=== PATIENT | female | born 1995 | race Hispanic/Latino ===

== ENCOUNTER 2023-09-07 15:01 | Emergency (ER) | payer SELFPAY ==
[~2023-09-07] VITALS: Ht 12.7 cm; Wt 47.6 kg
[2023-09-07] MEDS ORDERED: CEFTRIAXONE 1 GM VIAL IV SCH (15:45)
[2023-09-07] MEDS ORDERED: ACETAMINOPHEN 325 MG TAB PO ONE (15:45)
[2023-09-07 16:29] LABS: BASOPHILS % 0.1 % (0.0-1.0); HEMATOCRIT 34.5 % (34.2-44.1); HEMOGLOBIN 11.7 g/dL (12.0-16.0); LYMPHOCYTES # (AUTO) 0.5 (1.0-3.2); LYMPHOCYTES % 3.4 % (18.0-39.1); MEAN CORPUSCULAR HEMOGLOBIN 29.2 pg (28-32); MEAN CORPUSCULAR HGB CONC 33.9 g/dL (31-35); MONOCYTES # (AUTO) 0.9 (0.2-0.8); MONOCYTES % 6.1 % (4.4-11.3); NEUTROPHILS # (AUTO) 12.8 (2.1-6.9); PLATELET COUNT 215 x10e3/uL (140-360); RED BLOOD COUNT 4.01 x10e6/uL (3.6-5.1); WHITE BLOOD COUNT 14.19 x10e3/uL (4.8-10.8)
[2023-09-07] MEDS: SODIUM CHLORIDE 0.9% IV ONE (16:37)
[2023-09-07] MEDS: IBUPROFEN 400 MG TAB PO ONE (16:37)
[2023-09-07 16:42] LABS: PROTHROMBIN TIME 13.9 seconds (11.9-14.5)
[2023-09-07 16:43] LABS: PARTIAL THROMBOPLASTIN TIME 29.2 seconds (23.8-35.5)
[2023-09-07 16:49] LABS: ALBUMIN 4.2 g/dL (3.5-5.0); ALBUMIN/GLOBULIN RATIO 1.3 (0.8-2.0); ANION GAP 15.4 mmol/L (8-16); BILIRUBIN,TOTAL 0.9 mg/dL (0.2-1.2); CALCIUM 9.3 mg/dL (8.4-10.2); CREATININE, SERUM 0.74 mg/dL (0.57-1.11); TOTAL PROTEIN 7.5 g/dL (6.5-8.1)
[2023-09-07 16:51] LABS: POTASSIUM 3.4 mmol/L (3.5-5.1)
[2023-09-07 16:55] LABS: STREPTOCOCCUS GRP A ANTIGEN NEGATIVE (NEGATIVE)
[2023-09-07 17:03] LABS: INFLUENZAE A&B ANTIGEN (RAPID) NEGATIVE (NEGATIVE)
[2023-09-07] MEDS: ONDANSETRON HCL INJ 2MG/ML 2ML 2 MG/ML VIAL IV STA (17:06)
[2023-09-07] MEDS: KETOROLAC TROMETHAMINE 30 MG/ML VIAL IV STA (17:31)
[2023-09-07 18:06] LABS: BILIRUBIN,URINE NEGATIVE (NEGATIVE); CLARITY,URINE SL CLOUDY (CLEAR); COLOR,URINE YELLOW (YELLOW); GLUCOSE, URINE NEGATIVE (NEGATIVE); KETONES,URINE 1+ (NEGATIVE); LEUKOCYTE ESTERASE ,URINE SMALL (NEGATIVE); NITRITE,URINE POSITIVE (NEGATIVE); PH,URINE 6 (5 - 7); PROTEIN,URINE DIPSTICK 1+ (NEGATIVE); URINE UROBILINOGEN 1 mg/dL (0.2 - 1)
[2023-09-07 18:12] LABS: WBC,URINE (MAN) 21-50 /HPF (0-5)
[2023-09-07 18:13] LABS: BACTERIA,URINE FEW /HPF; EPITHELIAL CELLS,URINE FEW /LPF
[2023-09-07] MEDS ORDERED: ONDANSETRON ODT4 MG PO (18:16)
[2023-09-07] MEDS ORDERED: CEPHALEXIN500 MG PO (18:16)
[2023-09-07 18:27] VITALS: BP 96/66; PULSE 76; RESP 18; TEMP 99; O2SAT 100
== END 2023-09-07 18:30 | disposition home or self-care (01) ==
LOC: ER 15:11
DX: R50.9 Fever, unspecified (principal); N39.0 Urinary tract infection, site not specified; S00.83XA Contusion of other part of head, initial encounter; Y04.8XXA Assault by other bodily force, initial encounter; Y92.89 Other specified places as the place of occurrence of the external cause; Z11.52 Encounter for screening for COVID-19
CPT/HCPCS: 36415; 70450; 70486; 71045; 80053; 81001; 83518; 83605; 85025; 85610; 85730; 87040; 87070; 87086; 87400; 99284; J0696; J1885; J2405; J7030; U0002